=== PATIENT | female | born 1945 | race Caucasian/White ===

== ENCOUNTER → 2021-11-29 | Outpatient (CLI) | payer MEDICARE, OTHER ==
[~2021-11-29] VITALS: Ht 160 cm; Wt 62.1 kg
[~2021-11-29] MED LIST: CELEBREX 200MG200 MG PO; LEVOXYL0.05 MG PO
[2021-11-29 09:15] VITALS: BP 160/74; PULSE 47; TEMP 97.9
[2021-11-29 10:35] VITALS: BP 168/69; PULSE 51
== END ==
LOC: COL.RAD 08:59
DX: M48.062 Spinal stenosis, lumbar region with neurogenic claudication (principal)
CPT/HCPCS: J3301